=== PATIENT | female | born 1985 | race Two or more races ===

== ENCOUNTER 2016-08-20 18:54 | Emergency (ER) | payer BC ==
[~2016-08-20] VITALS: Ht 172.7 cm; Wt 59.0 kg
[2016-08-20 19:01] VITALS: BP 129/87
[2016-08-20] MEDS ORDERED: LORAZEPAM 1 MG TABLET ONE (19:33)
[2016-08-20] MEDS ORDERED: LORAZEPAM 1 MG TABLET PO ONE (20:00)
== END 2016-08-20 19:44 | disposition home or self-care (01) ==
LOC: ER 18:57
DX: F41.0 Panic disorder [episodic paroxysmal anxiety] (principal); F41.9 Anxiety disorder, unspecified; F31.9 Bipolar disorder, unspecified
CPT/HCPCS: 99284; A4606; Z7610